=== PATIENT | female | born 1955 | race Caucasian/White ===

== ENCOUNTER → 2018-01-19 | Outpatient (CLI) | payer MEDICAID ==
[~2018-01-19] MED LIST: ACET-76 PO; CLOR3.75 PO; LORA10TA3 PO; MELO15TA24 PO
[2018-01-19 14:39] LABS: BASOPHILS # (AUTO) 0.03 x10^3/uL (0-0.1); BASOPHILS % (AUTO) 0 % (0-1); EOSINOPHILS # (AUTO) 0.27 x10^3/uL (0-0.4); EOSINOPHILS % (AUTO) 3 % (1-7); LYMPHOCYTES # (AUTO) 2.93 x10^3/uL (1-3.4); LYMPHOCYTES % (AUTO) 38 % (22-44); MD NO; MEAN CORPUSCULAR HEMOGLOBIN 32.7 pg (27.0-34.8); MEAN CORPUSCULAR HGB CONC 34.3 g/dL (32.4-35.8); MEAN CORPUSCULAR VOLUME 95.3 fL (80-100); MONOCYTES # (AUTO) 0.47 x10^3/uL (0.2-0.8); MONOCYTES % (AUTO) 6 % (2-9); NEUTROPHILS # (AUTO) 4.12 x10^3/uL (1.8-6.8); NEUTROPHILS % (AUTO) 53 % (42-75); PLATELET COUNT 286 x10^3/uL (130-400); RED BLOOD COUNT 4.34 x10^6/uL (3.82-5.3); RED CELL DISTRIBUTION WIDTH 13.9 % (9.6-15.2)
[2018-01-19 14:45] LABS: ALANINE AMINOTRANSFERASE 25 U/L (12-78); ALBUMIN 4.3 g/dL (3.4-5.0); ANION GAP 9 mmol/L (5-15); CALCIUM 9.2 mg/dL (8.5-10.1); CHLORIDE 107 mmol/L (98-107); INTERNATIONAL NORMALIZED RATIO 0.94 (0.93-1.1); PROTHROMBIN TIME 9.8 Seconds (9.6-11.5)
[2018-01-19 14:47] LABS: ALKALINE PHOSPHATASE 84 U/L (45-117); BILIRUBIN,TOTAL 0.9 mg/dL (0.2-1.0); CREATININE 1.03 mg/dL (0.55-1.02); TOTAL PROTEIN 8.7 g/dL (6.4-8.2)
[2018-01-19 15:33] LABS: HEMOGLOBIN A1C 5.6 % (4.2-6.3)
== END | disposition home or self-care (01) ==
LOC: STAR 13:32
PROVIDERS: ATTEND Orthopaedic Surgery
DX: Z01.818 Encounter for other preprocedural examination (principal); M16.12 Unilateral primary osteoarthritis, left hip; Z87.891 Personal history of nicotine dependence
CPT/HCPCS: 36415; 80053; 83036; 85025; 85610; 85730; 87081; 93005

== ENCOUNTER 2018-03-11 10:30 | Inpatient (IN) | payer MEDICAID ==
[~2018-03-11] VITALS: Ht 167.6 cm; Wt 60.6 kg
[~2018-03-11 10:30] MED LIST changes: +EPINEPHRINE 1 MG/ML, 1ML ONE; +KETOROLAC 60 MG/2 ML ONE; +ROPIvacaine/PF 0.5%, 20 ML ONE; +SODIUM CHLORIDE 0.9% 100 ML ONE; +TRANEXAMIC ACID 100 MG/ML, 10ML ONE
[2018-03-11] MEDS ORDERED: LACTATED RINGERS 1,000 ML IV SCH (13:35)
[2018-03-11] MEDS ORDERED: GABAPENTIN 300 MG CAPSULE PO ONE (14:00)
[2018-03-11] MEDS ORDERED: ACETAMINOPHEN 500 MG TABLET PO ONE (14:00)
[2018-03-11] MEDS ORDERED: MIDAZOLAM 1 MG/ML, 2ML ONE (15:30)
[2018-03-11] MEDS ORDERED: ONDANSETRON 2MG/ML, 2ML ONE (15:31)
[2018-03-11] MEDS ORDERED: FENTANYL PF 100 MCG/2ML ONE ×3 (15:31→17:36)
[2018-03-11] MEDS ORDERED: CEFAZOLIN 1,000 MG ONE ×2 (15:31)
[2018-03-11] MEDS ORDERED: PROPOFOL 10 MG/ML, 20ML ONE (15:31)
[2018-03-11] MEDS ORDERED: LIDOCAINE-MPF 2% ,5ML ONE (15:31)
[2018-03-11] MEDS ORDERED: ROCURONIUM 10MG/ML,5ML ONE (16:25)
[2018-03-11] MEDS ORDERED: SUCCINYLCHOLINE 20 MG/ML, 10ML ONE (16:25)
[2018-03-11] MEDS ORDERED: ZOLPIDEM 5MG TABLET PO PRN (16:30)
[2018-03-11] MEDS ORDERED: BISACODYL 10 MG SUPP PR PRN (16:30)
[2018-03-11] MEDS ORDERED: OXYcodone IR 5MG TABLET PO PRN (16:30)
[2018-03-11] MEDS ORDERED: ONDANSETRON 2MG/ML, 2ML IV PRN (16:30)
[2018-03-11] MEDS ORDERED: CEFAZOLIN PMX 2GM/50ML 50 ML IVPB SCH (16:30)
[2018-03-11] MEDS ORDERED: ACETAMINOPHEN 650 MG/20.3 ML UDC PO PRN (16:30)
[2018-03-11] MEDS ORDERED: DIPHENHYDRAMINE 50 MG CAPSULE PO PRN (16:30)
[2018-03-11] MEDS ORDERED: SCOPOLAMINE PATCH, 1.5MG PATCH.TD72 TD ONE (16:30)
[2018-03-11] MEDS ORDERED: ONDANSETRON 4 MG TABLET PO PRN (16:30)
[2018-03-11] MEDS ORDERED: MAGNESIUM HYDROXIDE 8%, 30ML UDC PO PRN (16:30)
[2018-03-11] MEDS ORDERED: HYDROcodone/APAP 5/325 TABLET PO PRN (16:30)
[2018-03-11] MEDS ORDERED: CLORAZEPATE DIPOTASSIUM 3.75 MG PO PRN (16:30)
[2018-03-11] MEDS ORDERED: SENNA/DOCUSATE TABLET PO PRN (16:30)
[2018-03-11] MEDS ORDERED: OXYcodone 5 MG/5 ML ORAL.SOL UDC ONE (17:36)
[2018-03-11] MEDS ORDERED: HYDROmorphone 2 MG/ML, 1ML ONE (17:36)
[2018-03-11] MEDS ORDERED: MEPERIDINE/PF 50 MG/ML ONE (17:37)
[2018-03-11] MEDS ORDERED: VANCOMYCIN 1,000 MG ONE (17:37)
[2018-03-11] MEDS: MEPERIDINE/PF 25MG/0.5ML IVPush PRN ×2 (17:40→17:59)
[2018-03-11] MEDS ORDERED: FENTANYL PF 100 MCG/2ML IV PRN (18:00)
[2018-03-11] MEDS ORDERED: TRANEXAMIC ACID 1,000 MG in SODIUM CHLORIDE 0.9% 100 ML IV ONE (18:00)
[2018-03-11] MEDS ORDERED: OXYcodone 5 MG/5 ML ORAL.SOL UDC PO PRN (18:00)
[2018-03-11] MEDS: HYDROmorphone 1 MG/ML, 1ML IV PRN ×2 (18:10→18:34)
[2018-03-11 19:50] VITALS: BP 122/84
[2018-03-11] MEDS: ASPIRIN 81 MG TABLET EC PO SCH (19:59)
[2018-03-11] MEDS: DOCUSATE 100 MG CAPSULE PO SCH (19:59)
[2018-03-11] MEDS ORDERED: CEFAZOLIN 2,000 MG in SODIUM CHLORIDE 0.9% 50 ML IVPB SCH (20:00)
[2018-03-11] MEDS ORDERED: ACETAMINOPHEN 500 MG TABLET PO PRN (20:30)
[2018-03-11] MEDS ORDERED: CLORAZEPATE DIPOTASSIUM PO PRN (20:30)
[2018-03-11] MEDS: NS + 20MEQ KCL 1,000 ML IV SCH (21:30)
[2018-03-11 23:25] VITALS: BP 96/56
[2018-03-12 03:35] VITALS: BP 98/52
[2018-03-12 04:43] VITALS: BP 109/72
[2018-03-12] MEDS ORDERED: DEXAMETHASONE 4 MG/ML, 1ML IVPush SCH (06:00)
[2018-03-12] MEDS: ASPIRIN 81 MG TABLET EC PO SCH (06:10)
[2018-03-12] MEDS: NS + 20MEQ KCL 1,000 ML IV SCH (08:37)
[2018-03-12] MEDS: DOCUSATE 100 MG CAPSULE PO SCH (08:49)
[2018-03-12 08:55] VITALS: BP 121/72
[2018-03-12] MEDS ORDERED: LORATADINE 10 MG TABLET PO SCH (09:00)
[2018-03-12] MEDS ORDERED: MELOXICAM 15 MG TABLET PO SCH (09:00)
[2018-03-12] MEDS ORDERED: MELO7.5T31 PO (10:36)
[2018-03-12] MEDS ORDERED: TRAM50TA2 PO (10:37)
[2018-03-12] MEDS ORDERED: OXYC5CAP2 PO (10:37)
== END 2018-03-12 11:05 | disposition home or self-care (01) | DRG 470 ==
LOC: ORIP 13:11 → 4NOR 19:23
PROVIDERS: ADMIT Orthopaedic Surgery; ATTEND Orthopaedic Surgery
PROC: 0SRB06A Replacement of Left Hip Joint with Oxidized Zirconium on Polyethylene Synthetic Substitute, Uncemented, Open Approach (ICD-10-PCS; principal; 2018-03-11 16:45)
DX: M16.12 Unilateral primary osteoarthritis, left hip (principal); Z87.891 Personal history of nicotine dependence
CPT/HCPCS: 36415; 76000; 85014; 85018; C1713; G0378; J0171; J0690; J1100; J1170; J1885; J2175; J2250; J2405; J2704; J2795; J3010; J3370; J3480; J3490; C1776; J0330

== ENCOUNTER 2018-08-29 13:03 | Emergency (ER) | payer MEDICAID ==
[~2018-08-29] VITALS: Ht 167.6 cm; Wt 62.0 kg
[~2018-08-29 13:03] MED LIST changes: -EPINEPHRINE 1 MG/ML, 1ML ONE; -KETOROLAC 60 MG/2 ML ONE; +LORA-247 PO; -LORA10TA3 PO; +MELO7.5T31 PO; +OXYC5CAP2 PO; -ROPIvacaine/PF 0.5%, 20 ML ONE; -SODIUM CHLORIDE 0.9% 100 ML ONE; +TRAM50TA2 PO; -TRANEXAMIC ACID 100 MG/ML, 10ML ONE
[2018-08-29 13:23] VITALS: BP 149/71
--- NOTE | 2018-08-29 13:35 | NUR ---
PT IN XRAY.
--- NOTE | 2018-08-29 13:35 | NUR ---
FIRST CONTACT WITH PT. PT C/O COUGHING, WORSE AT NIGHT, WITH NASAL CONGESTION X 7 DAYS. PT'S AOX4. RESPS EVEN AND UNLABORED.
--- NOTE | 2018-08-29 13:45 | NUR ---
PT BACK TO ROOM FROM XRAY.
--- NOTE | 2018-08-29 14:14 | NUR ---
PT GIVEN DC INSTRUCTIONS AND SCRIPTS. PT'S AOX4. RESPS EVEN AND UNLABORED. PT AMB TO DC WITH STEADY GAIT. NO ACUTE DISTRESS AT DC.
== END 2018-08-29 14:15 | disposition home or self-care (01) ==
LOC: ED 13:59
DX: B34.9 Viral infection, unspecified (principal)
CPT/HCPCS: 71046; 99283